=== PATIENT | male | born 1945 | race Caucasian/White ===

== ENCOUNTER 2019-04-30 01:27 | Inpatient (IN) | payer MEDICARE ==
[~2019-04-30] VITALS: Ht 177.8 cm; Wt 73.8 kg
[2019-04-30 02:09] LABS: BASOPHILS # (AUTO) 0.1 X10'3 (0-0.2); BASOPHILS % (AUTO) 1.2 % (0-1); EOSINOPHILS # (AUTO) 0.1 X10'3 (0-0.9); EOSINOPHILS % (AUTO) 1.8 % (0-6); HEMATOCRIT 38.5 % (42.0-52.0); HEMOGLOBIN 12.9 g/dl (14.0-17.9); LYMPHOCYTES # (AUTO) 0.6 X10'3 (1.1-4.8); LYMPHOCYTES % (AUTO) 11.1 % (21-51); MEAN CORPUSCULAR HEMOGLOBIN 31.2 PG (27.0-31.0); MEAN CORPUSCULAR HGB CONC 33.4 g/dL (33.0-36.5); MEAN CORPUSCULAR VOLUME 93.4 FL (78-98); MEAN PLATELET VOLUME 8.2 FL (7.4-10.4); MONOCYTES # (AUTO) 0.4 X10'3 (0-0.9); MONOCYTES % (AUTO) 8.3 % (2-12); NEUTROPHILS % (AUTO) 77.6 % (42-75); PLATELET COUNT 236 X10'3 (140-440); RED BLOOD COUNT 4.13 X10'6 (4.70-6.10); RED CELL DISTRIBUTION WIDTH 15.8 % (11.5-14.5); WHITE BLOOD COUNT 5.1 X10'3 (4.5-11.0)
[2019-04-30 02:33] LABS: ALANINE AMINOTRANSFERASE 15 U/L (12-78); ALBUMIN 3.4 G/DL (3.4-5.0); ALBUMIN/GLOBULIN RATIO 0.8 (1.1-1.5); ALKALINE PHOSPHATASE 50 IU/L (46-116); ANION GAP 15 (8-16); ASPARTATE AMINO TRANSFERASE 12 U/L (10-37); BLOOD UREA NITROGEN 24 MG/DL (7-18); BUN/CREATININE RATIO 22.2 (5.4-32.0); CALCIUM 8.7 MG/DL (8.5-10.1); CHLORIDE 106 MMOL/L (99-107); CREATININE 1.08 MG/DL (0.60-1.10); GLUCOSE 142 MG/DL (70-104); SODIUM 142 MMOL/L (135-145); TOTAL PROTEIN 7.9 G/DL (6.4-8.2); eGFR 67 ML/MIN
[2019-04-30 02:36] LABS: PARTIAL THROMBOPLASTIN TIME 68 SECONDS (22-32)
[2019-04-30] MEDS ORDERED: iohexol 350MG/ML 100ml bottle IV ONE (02:55)
[2019-04-30] MEDS ORDERED: BUPR150T8 PO (04:03)
[2019-04-30] MEDS ORDERED: SITA100T11 PO (04:03)
[2019-04-30] MEDS ORDERED: DIPH50LI26 PO (04:03)
[2019-04-30] MEDS ORDERED: NITR0.4T51 SL (04:03)
[2019-04-30] MEDS ORDERED: ISOS30TA9 PO (04:03)
[2019-04-30] MEDS ORDERED: SIMV20TA5 PO (04:03)
[2019-04-30] MEDS ORDERED: ACET-2119 PO (04:03)
[2019-04-30] MEDS ORDERED: DIGO125T78 PO (04:03)
[2019-04-30] MEDS ORDERED: LISI-643 PO (04:03)
[2019-04-30] MEDS ORDERED: COU2.5T PO (04:03)
[2019-04-30] MEDS ORDERED: METO1TAB25 PO (04:03)
[2019-04-30] MEDS ORDERED: INDLA60C (04:03)
[2019-04-30] MEDS ORDERED: METF500T PO (04:03)
[2019-04-30] MEDS ORDERED: azithromycin/NS 500mg/250ml 250 ML IV ONE (05:05)
[2019-04-30] MEDS ORDERED: ipratropium/albuterol 3ml nebule NEB ONE (05:05)
[2019-04-30] MEDS ORDERED: normal saline 1000ML IV soln IVB ONE (05:05)
[2019-04-30] MEDS ORDERED: CefTRIAXone 2gm/D5W 50ml 50 ML IV ONE (05:05)
[2019-04-30] MEDS ORDERED: methylPREDNISolone sod succ 125mg/2ml vial IV ONE (05:05)
[2019-04-30 05:26] LABS: ABG BASE EXCESS -5.4 mmol/L (-2.0-3.0); ABG HCO3 17.2 mmol/L (22.0-26.0); ABG PCO2 (T) 26.5 mmHg (35.0-45.0); ABG PH (T) 7.429 (7.350-7.450); ABG PO2 (T) 82.9 mmHg (83-108); ALLEN'S TEST Positive; FCOHb 0.1 % (0.5-1.5); FLOW 10 L/min; FMetHb 0.2 % (0.3-1.12); FO2Hb 95.7 % (94-100); TOTAL HEMOGLOBIN 14.5 G/dl (14.0-17.9)
[2019-04-30] MEDS ORDERED: potassium Cl 20 mEq SR tablet PO PRN (05:40)
[2019-04-30] MEDS ORDERED: potassium CL 10mEq/100ml bag 100 ML IV PRN ×2 (05:40)
[2019-04-30] MEDS ORDERED: mag hydrox/Alum hydrox/simeth 30ml oral suspension PO PRN (05:40)
[2019-04-30] MEDS ORDERED: MESSAGE TO PHARMACY PO ONE (05:40)
[2019-04-30] MEDS ORDERED: dextrose 50%-water 50ml dispensing syringe IV PRN ×2 (05:40)
[2019-04-30] MEDS ORDERED: insulin Lispro (HumaLOG) vial - multi-dose SQ SCH (05:40)
[2019-04-30] MEDS ORDERED: acetaminophen 325mg tablet PO PRN (05:40)
[2019-04-30] MEDS ORDERED: morphine 2 MG/ML inj. syringe IV PRN ×2 (05:40)
[2019-04-30] MEDS ORDERED: ondansetron/PF 4mg/2ml inj IV PRN (05:40)
[2019-04-30] MEDS ORDERED: dextrose ORAL solution 15 GM/59 ML bottle PO PRN ×2 (05:40)
[2019-04-30] MEDS ORDERED: glucagon, human recombinant 1mg kit SUBCUT PRN (05:40)
[2019-04-30] MEDS ORDERED: magnesium hydroxide 30ml (MOM) UD suspension PO PRN (05:40)
[2019-04-30] MEDS ORDERED: nitroGLYCERIN 0.4mg SUBLingual tab SL PRN (05:45)
[2019-04-30] MEDS ORDERED: ondansetron/PF 4mg/2ml inj IV ONE (05:50)
[2019-04-30] MEDS: normal saline 1000ml 1,000 ML IV SCH ×2 (05:52→18:34)
--- NOTE | 2019-04-30 05:57 | NUR ---
DISCUSSED PT'S INABILITY TO URINATE WITH DR GRIMM. NEW ORDER FOR FC PLACEMENT RECEIVED.
--- NOTE | 2019-04-30 06:27 | NUR ---
PATIENT RECEIVED ON A NON REBREATHER.
--- NOTE | 2019-04-30 06:27 | NUR ---
PATIENT RECEIVED ON BED AWAKE,SPOUSE AT BEDSIDE,NAME BAND CHANGED.AWAITING FOR ROOM ASSIGNMENT.
--- NOTE | 2019-04-30 06:56 | NUR ---
PATIENT CHANGED INTO A HOSPITAL GOWN,SACRAL AREA INTACT WIH BLANCHABLE REDNESS.REPOSITIONED PATIENT,GIVEN WARM BLANKET,SPOUSE AT BEDSIDE.APPRECIATIVE OF CARE.
--- NOTE | 2019-04-30 07:02 | NUR ---
PATIENT PLACED ON NC 2l SATING 96%,WILL OBSERVE IF PATIENT IS ABLE TO TOLERATE WIHOUT GETTING SOB.
[2019-04-30] MEDS: metoprolol tartrate 25mg tablet PO SCH (07:04)
[2019-04-30] MEDS: lisinopril 2.5mg tablet PO SCH (07:05)
[2019-04-30] MEDS: HYDROchlorothiazide 12.5mg capsule PO SCH (07:05)
--- NOTE | 2019-04-30 07:06 | NUR ---
BP MEDS HELD THIS MORNING,PATIENT BOARDERLINE HYPOTENSIVE.
--- NOTE | 2019-04-30 07:14 | NUR ---
CALLED PHARMACY,SPOKE TO NATE ROSALES AND LANOXIN NOT AVAILABLE AT THIS TIME,BREAKFAST ORDERED FROM DIETARY.
[2019-04-30] MEDS: linagliptin 5mg tablet PO SCH (08:00)
[2019-04-30] MEDS: K and/or MAG REPLACEMENT MC SCH (08:00)
[2019-04-30] MEDS: buPROPion SR 150mg tablet PO SCH ×2 (08:19→20:53)
[2019-04-30] MEDS: azithromycin/NS 500mg/250ml 250 ML IV SCH (08:20)
--- NOTE | 2019-04-30 08:34 | NUR ---
joey held per spouse-patient low po intake.
[2019-04-30] MEDS: digoxin 125mcg (0.125mg) tablet PO SCH (08:54)
[2019-04-30 09:01] LABS: HEMOGLOBIN A1C 5.8 % (4.5-6.2)
[2019-04-30] MEDS ORDERED: ISOS30TA6 PO (10:13)
--- NOTE | 2019-04-30 11:03 | NUR ---
LEFT A MEESAGE TO SPOUSE PATRICE MADE AWARE THAT PATIENT IS BEING TRANSFERRED TO [facility].
[2019-04-30 11:15] VITALS: BP 105/59
--- NOTE | 2019-04-30 11:36 | NUR ---
pt arrived from ER to [id number]. Report obtained from BRENT Gann. Pt connected to heart monitor and VS obtained and stable. Pt oriented to room. Denies pain at this time. No others needs at this time.
--- NOTE | 2019-04-30 18:20 | NUR ---
pts daughter, [place] [facility] [phone]
--- NOTE | 2019-04-30 18:25 | NUR ---
Patient in room PCU 3028. I have received report from Sakina KENNEDY and had the opportunity to ask questions and assume patient care.
[2019-04-30 19:00] VITALS: BP 104/61
[2019-04-30] MEDS: lactobacillus rhamnosus 10,000 MMU CELLS/CAPSULE PO SCH (20:53)
[2019-04-30] MEDS: atorvastatin 20mg tablet PO SCH (20:53)
[2019-04-30 20:55] VITALS: BP 110/63
[2019-04-30] MEDS: isosorbide mononitrate 30mg tab.SR.24H PO SCH (20:56)
[2019-04-30] MEDS ORDERED: isosorbide dinitrate 30mg tablet PO SCH (21:00)
[2019-04-30] MEDS: insulin glargine (Lantus) pen - multi-dose SQ SCH (21:00)
[2019-04-30 23:00] VITALS: BP 99/54
[2019-05-01] MEDS: normal saline 1000ml 1,000 ML IV SCH ×2 (01:40→04:54)
[2019-05-01 03:00] VITALS: BP 103/50
[2019-05-01] MEDS: CefTRIAXone/D5W-Rocephin 1gm 50 ML IV SCH (05:04)
[2019-05-01 06:03] LABS: BASOPHILS % (AUTO) 0.2 % (0-1); EOSINOPHILS % (AUTO) 0 % (0-6); HEMATOCRIT 28.6 % (42.0-52.0); HEMOGLOBIN 9.9 g/dl (14.0-17.9); LYMPHOCYTES # (AUTO) 0.8 X10'3 (1.1-4.8); LYMPHOCYTES % (AUTO) 7.3 % (21-51); MEAN CORPUSCULAR HEMOGLOBIN 33.1 PG (27.0-31.0); MEAN CORPUSCULAR HGB CONC 34.5 g/dL (33.0-36.5); MEAN PLATELET VOLUME 8.3 FL (7.4-10.4); MONOCYTES # (AUTO) 1.3 X10'3 (0-0.9); MONOCYTES % (AUTO) 11.8 % (2-12); NEUTROPHILS # (AUTO) 9.1 X10'3 (1.8-7.7); NEUTROPHILS % (AUTO) 80.7 % (42-75); PLATELET COUNT 172 X10'3 (140-440); RED BLOOD COUNT 2.98 X10'6 (4.70-6.10); RED CELL DISTRIBUTION WIDTH 15.6 % (11.5-14.5); WHITE BLOOD COUNT 11.3 X10'3 (4.5-11.0)
[2019-05-01 06:05] LABS: ALBUMIN 2.5 G/DL (3.4-5.0); ANION GAP 12 (8-16); BLOOD UREA NITROGEN 24 MG/DL (7-18); BUN/CREATININE RATIO 24.2 (5.4-32.0); CALCIUM 7.7 MG/DL (8.5-10.1); CHLORIDE 108 MMOL/L (99-107); CREATININE 0.99 MG/DL (0.60-1.10); GLUCOSE 129 MG/DL (70-104); POTASSIUM 3.8 MMOL/L (3.5-5.1); SODIUM 141 MMOL/L (135-145); TOTAL CARBON DIOXIDE 20.9 MMOL/L (24-32); eGFR 74 ML/MIN
--- NOTE | 2019-05-01 06:10 | NUR ---
Problems reprioritized. Patient report given, questions answered & plan of care reviewed with Jossy KENNEDY.
[2019-05-01 06:30] VITALS: BP 104/60
--- NOTE | 2019-05-01 06:42 | NUR ---
Patient in room PCU 3028A. I have received report from Janene KENNEDY and had the opportunity to ask questions and assume patient care.
[2019-05-01] MEDS: metoprolol tartrate 25mg tablet PO SCH (08:00)
[2019-05-01] MEDS: lisinopril 2.5mg tablet PO SCH (08:00)
[2019-05-01] MEDS: K and/or MAG REPLACEMENT MC SCH (08:00)
[2019-05-01] MEDS: HYDROchlorothiazide 12.5mg capsule PO SCH (08:00)
[2019-05-01] MEDS: digoxin 125mcg (0.125mg) tablet PO SCH (08:45)
[2019-05-01] MEDS: lactobacillus rhamnosus 10,000 MMU CELLS/CAPSULE PO SCH ×2 (08:45→20:22)
[2019-05-01] MEDS: buPROPion SR 150mg tablet PO SCH ×2 (08:45→20:22)
[2019-05-01] MEDS: linagliptin 5mg tablet PO SCH (08:45)
[2019-05-01] MEDS: azithromycin/NS 500mg/250ml 250 ML IV SCH (08:47)
[2019-05-01 09:14] LABS: PLATELET ESTIMATE NORMAL; TOTAL CELLS COUNTED 100
[2019-05-01 11:00] VITALS: BP 113/68
[2019-05-01 15:00] VITALS: BP 125/79
--- NOTE | 2019-05-01 15:34 | NUR ---
Malnutrition/cardiac diet consults: Pt admit w/ SOB DX community-acquired PNA hx CA requiring removal of top row of teeth but pt does not want to wear dentures per POA. RD d/w POA regarding protein/kcal needs. POA reports March 03 doctors visit pt was 171.5 pounds; currently 147 pounds. 15% UBW loss in 8 weeks severe wt loss r/t low PO 10-25% first meal during RD visit. POA reports trouble swallowing and chokes often on food as well as needs feeder r/t shaking and adaptive wear has been unsuccessful at home. Pt/POA agree to ensure pudding and Glucernas TIDWM given low PO hx. RD ordered [employer] BSS given pt hx and DX would benefit. Given above criteria pt qualifies for severe malnutrition at this time; MD notified. Pt family aware that MD verification required prior to sending Glucernas w/ meals. RD provided written/verbal malnutrition ed, RD contact information, and Glucerna coupons to pt/POA. Will continue to monitor. Rec: 1. continue carb controlled diet w/ feeder 2. ensure pudding TIDWM 3. Glucerna TIDWM; pending MD verification prior to sending on meals 4. honor pt food preferences 5. weekly wts Addendum: 05/01/19 at [address] Amended: Links added.
[2019-05-01 18:00] VITALS: BP 123/76
[2019-05-01] MEDS ORDERED: NUT.TX.GLUC.INTOLER,LAC-FR,SOY (GLUCERNA) 237 ML PO SCH (18:00)
--- NOTE | 2019-05-01 18:23 | NUR ---
Problems reprioritized. Patient report given, questions answered & plan of care reviewed with Elizabeth KENNEDY.
--- NOTE | 2019-05-01 18:25 | NUR ---
Patient in room PCU 3028. I have received report from BRENT Fenton and had the opportunity to ask questions and assume patient care. Patient is resting comfortably on hospital bed, dinner tray is present he however says he is not that hungry. He is A&Ox3, PABON and is appropriate, slow to answer. I will continue to monitor.
[2019-05-01] MEDS: atorvastatin 20mg tablet PO SCH (20:22)
[2019-05-01] MEDS: isosorbide mononitrate 30mg tab.SR.24H PO SCH (20:22)
[2019-05-01] MEDS: insulin glargine (Lantus) pen - multi-dose SQ SCH (21:00)
[2019-05-01 23:00] VITALS: BP_SYST 103; BP_SYST 122; BP_DIAS 51; BP_DIAS 80
[2019-05-02 02:00] VITALS: BP 106/60
[2019-05-02] MEDS: CefTRIAXone/D5W-Rocephin 1gm 50 ML IV SCH (05:16)
[2019-05-02 06:00] VITALS: BP 101/55
--- NOTE | 2019-05-02 06:14 | NUR ---
Problems reprioritized. Patient report given, questions answered & plan of care reviewed with BRENT Fenton.
--- NOTE | 2019-05-02 06:20 | NUR ---
Patient in room PCU 3026K. I have received report from Elizabeth KENNEDY and had the opportunity to ask questions and assume patient care.
[2019-05-02 06:35] LABS: BASOPHILS % (AUTO) 0.2 % (0-1); EOSINOPHILS # (AUTO) 0.1 X10'3 (0-0.9); EOSINOPHILS % (AUTO) 0.7 % (0-6); HEMATOCRIT 29.1 % (42.0-52.0); LYMPHOCYTES # (AUTO) 0.9 X10'3 (1.1-4.8); LYMPHOCYTES % (AUTO) 7.2 % (21-51); MEAN CORPUSCULAR HEMOGLOBIN 32.1 PG (27.0-31.0); MEAN CORPUSCULAR HGB CONC 34.5 g/dL (33.0-36.5); MEAN CORPUSCULAR VOLUME 93.1 FL (78-98); MEAN PLATELET VOLUME 8.3 FL (7.4-10.4); MONOCYTES # (AUTO) 0.9 X10'3 (0-0.9); MONOCYTES % (AUTO) 7.2 % (2-12); NEUTROPHILS # (AUTO) 10.7 X10'3 (1.8-7.7); NEUTROPHILS % (AUTO) 84.7 % (42-75); PLATELET COUNT 182 X10'3 (140-440); RED BLOOD COUNT 3.13 X10'6 (4.70-6.10); RED CELL DISTRIBUTION WIDTH 15.8 % (11.5-14.5); WHITE BLOOD COUNT 12.6 X10'3 (4.5-11.0)
[2019-05-02 06:43] LABS: ALBUMIN 2.6 G/DL (3.4-5.0); ANION GAP 14 (8-16); BLOOD UREA NITROGEN 18 MG/DL (7-18); BUN/CREATININE RATIO 21.7 (5.4-32.0); CALCIUM 7.8 MG/DL (8.5-10.1); CHLORIDE 107 MMOL/L (99-107); CREATININE 0.83 MG/DL (0.60-1.10); GLUCOSE 105 MG/DL (70-104); POTASSIUM 3.3 MMOL/L (3.5-5.1); SODIUM 143 MMOL/L (135-145); TOTAL CARBON DIOXIDE 22.2 MMOL/L (24-32); eGFR > 90 ML/MIN
[2019-05-02] MEDS: K and/or MAG REPLACEMENT MC SCH (08:00)
[2019-05-02] MEDS: azithromycin/NS 500mg/250ml 250 ML IV SCH (09:00)
[2019-05-02] MEDS: potassium Cl 20 mEq SR tablet PO PRN ×3 (09:00→17:11)
[2019-05-02] MEDS: linagliptin 5mg tablet PO SCH (09:00)
[2019-05-02] MEDS: lactobacillus rhamnosus 10,000 MMU CELLS/CAPSULE PO SCH ×2 (09:01→21:18)
[2019-05-02] MEDS: buPROPion SR 150mg tablet PO SCH ×2 (09:01→21:18)
[2019-05-02] MEDS: HYDROchlorothiazide 12.5mg capsule PO SCH (09:02)
[2019-05-02] MEDS: digoxin 125mcg (0.125mg) tablet PO SCH (09:02)
[2019-05-02] MEDS: lisinopril 2.5mg tablet PO SCH (09:02)
[2019-05-02] MEDS: metoprolol tartrate 25mg tablet PO SCH (09:02)
[2019-05-02 11:00] VITALS: BP 97/55
[2019-05-02 15:00] VITALS: BP 132/75
--- NOTE | 2019-05-02 16:40 | NUR ---
Patient in room PCU 3028. I have received report from BRENT Fenton and had the opportunity to ask questions and assume patient care.
[2019-05-02] MEDS: NUT.TX.GLUC.INTOLER,LAC-FR,SOY (GLUCERNA) 237 ML PO SCH (18:00)
--- NOTE | 2019-05-02 18:48 | NUR ---
Problems reprioritized. Patient report given, questions answered & plan of care reviewed with Jess KENNEDY.
[2019-05-02 19:00] VITALS: BP 135/89
[2019-05-02] MEDS: insulin glargine (Lantus) pen - multi-dose SQ SCH (21:00)
[2019-05-02] MEDS ORDERED: warfarin 2.5mg tablet PO ONE (21:00)
[2019-05-02] MEDS: atorvastatin 20mg tablet PO SCH (21:17)
[2019-05-02] MEDS: isosorbide mononitrate 30mg tab.SR.24H PO SCH (21:18)
[2019-05-02] MEDS: warfarin 2.5mg tablet PO SCH (21:19)
[2019-05-02 23:00] VITALS: BP 120/65
[2019-05-03 03:00] VITALS: BP 114/61
[2019-05-03] MEDS: CefTRIAXone/D5W-Rocephin 1gm 50 ML IV SCH (05:28)
[2019-05-03 05:49] LABS: BASOPHILS % (AUTO) 0.1 % (0-1); EOSINOPHILS # (AUTO) 0.2 X10'3 (0-0.9); EOSINOPHILS % (AUTO) 1.5 % (0-6); HEMATOCRIT 28.4 % (42.0-52.0); HEMOGLOBIN 10.1 g/dl (14.0-17.9); LYMPHOCYTES # (AUTO) 0.9 X10'3 (1.1-4.8); LYMPHOCYTES % (AUTO) 7.6 % (21-51); MEAN CORPUSCULAR HEMOGLOBIN 32.9 PG (27.0-31.0); MEAN CORPUSCULAR HGB CONC 35.4 g/dL (33.0-36.5); MEAN CORPUSCULAR VOLUME 93.1 FL (78-98); MEAN PLATELET VOLUME 8.4 FL (7.4-10.4); MONOCYTES # (AUTO) 0.9 X10'3 (0-0.9); MONOCYTES % (AUTO) 7.6 % (2-12); NEUTROPHILS # (AUTO) 9.8 X10'3 (1.8-7.7); NEUTROPHILS % (AUTO) 83.2 % (42-75); PLATELET COUNT 199 X10'3 (140-440); RED BLOOD COUNT 3.06 X10'6 (4.70-6.10); RED CELL DISTRIBUTION WIDTH 15.2 % (11.5-14.5); WHITE BLOOD COUNT 11.8 X10'3 (4.5-11.0)
[2019-05-03 05:54] LABS: ALBUMIN 2.6 G/DL (3.4-5.0); ANION GAP 12 (8-16); BLOOD UREA NITROGEN 11 MG/DL (7-18); BUN/CREATININE RATIO 13.8 (5.4-32.0); CALCIUM 8.1 MG/DL (8.5-10.1); CHLORIDE 104 MMOL/L (99-107); GLUCOSE 100 MG/DL (70-104); POTASSIUM 3.8 MMOL/L (3.5-5.1); SODIUM 139 MMOL/L (135-145); TOTAL CARBON DIOXIDE 22.9 MMOL/L (24-32); eGFR > 90 ML/MIN
[2019-05-03 06:00] VITALS: BP 108/67
--- NOTE | 2019-05-03 06:18 | NUR ---
Problems reprioritized. Patient report given, questions answered & plan of care reviewed with Rose MarieRN, Charles KENNEDY.
--- NOTE | 2019-05-03 06:31 | NUR ---
Patient in room PCU 3028. I have received report from Jess KENNEDY and had the opportunity to ask questions and assume patient care.
--- NOTE | 2019-05-03 06:31 | NUR ---
Patient in room PCU 3028. I have received report from BRENT Mercado and had the opportunity to ask questions and assume patient care. Pt awoke in a pleasant mood. Stated he will go back to sleep while he can. Will continue to monitor.
[2019-05-03] MEDS: azithromycin/NS 500mg/250ml 250 ML IV SCH (07:28)
[2019-05-03] MEDS: K and/or MAG REPLACEMENT MC SCH (07:38)
[2019-05-03] MEDS: linagliptin 5mg tablet PO SCH (07:49)
[2019-05-03] MEDS: lactobacillus rhamnosus 10,000 MMU CELLS/CAPSULE PO SCH ×2 (07:49→20:09)
[2019-05-03] MEDS: buPROPion SR 150mg tablet PO SCH ×2 (07:49→20:09)
[2019-05-03] MEDS: HYDROchlorothiazide 12.5mg capsule PO SCH (07:50)
[2019-05-03] MEDS: metoprolol tartrate 25mg tablet PO SCH (07:50)
[2019-05-03] MEDS: lisinopril 2.5mg tablet PO SCH (07:50)
[2019-05-03] MEDS: digoxin 125mcg (0.125mg) tablet PO SCH (07:51)
[2019-05-03] MEDS: NUT.TX.GLUC.INTOLER,LAC-FR,SOY (GLUCERNA) 237 ML PO SCH ×3 (08:00→18:20)
[2019-05-03 11:00] VITALS: BP 114/62
[2019-05-03 15:00] VITALS: BP 136/73
[2019-05-03 18:00] VITALS: BP 126/60
--- NOTE | 2019-05-03 18:35 | NUR ---
Patient in room PCU 3028. I have received report from BRENT Soto and had the opportunity to ask questions and assume patient care.
--- NOTE | 2019-05-03 18:43 | NUR ---
Problems reprioritized. Patient report given, questions answered & plan of care reviewed with BRENT Lafleur.
[2019-05-03] MEDS: isosorbide mononitrate 30mg tab.SR.24H PO SCH (20:09)
[2019-05-03] MEDS: warfarin 2.5mg tablet PO SCH (20:10)
[2019-05-03] MEDS: atorvastatin 20mg tablet PO SCH (20:10)
[2019-05-03] MEDS: insulin glargine (Lantus) pen - multi-dose SQ SCH (21:00)
[2019-05-03 22:00] VITALS: BP 118/73
[2019-05-04 02:00] VITALS: BP 117/68
[2019-05-04 04:43] LABS: BASOPHILS % (AUTO) 0.2 % (0-1); EOSINOPHILS # (AUTO) 0.2 X10'3 (0-0.9); EOSINOPHILS % (AUTO) 1.2 % (0-6); HEMATOCRIT 30.3 % (42.0-52.0); HEMOGLOBIN 10.5 g/dl (14.0-17.9); LYMPHOCYTES % (AUTO) 7.3 % (21-51); MEAN CORPUSCULAR HEMOGLOBIN 32.2 PG (27.0-31.0); MEAN CORPUSCULAR HGB CONC 34.6 g/dL (33.0-36.5); MEAN CORPUSCULAR VOLUME 93.2 FL (78-98); MEAN PLATELET VOLUME 7.8 FL (7.4-10.4); MONOCYTES # (AUTO) 1.5 X10'3 (0-0.9); MONOCYTES % (AUTO) 11.4 % (2-12); NEUTROPHILS # (AUTO) 10.5 X10'3 (1.8-7.7); NEUTROPHILS % (AUTO) 79.9 % (42-75); PLATELET COUNT 206 X10'3 (140-440); RED BLOOD COUNT 3.25 X10'6 (4.70-6.10); RED CELL DISTRIBUTION WIDTH 15.2 % (11.5-14.5); WHITE BLOOD COUNT 13.1 X10'3 (4.5-11.0)
[2019-05-04 04:57] LABS: ALBUMIN 2.6 G/DL (3.4-5.0); ANION GAP 13 (8-16); BLOOD UREA NITROGEN 10 MG/DL (7-18); BUN/CREATININE RATIO 13.2 (5.4-32.0); CALCIUM 8.1 MG/DL (8.5-10.1); CHLORIDE 100 MMOL/L (99-107); CREATININE 0.76 MG/DL (0.60-1.10); GLUCOSE 122 MG/DL (70-104); POTASSIUM 3.1 MMOL/L (3.5-5.1); SODIUM 137 MMOL/L (135-145); TOTAL CARBON DIOXIDE 24.3 MMOL/L (24-32); eGFR > 90 ML/MIN
[2019-05-04] MEDS: CefTRIAXone/D5W-Rocephin 1gm 50 ML IV SCH (04:59)
[2019-05-04 06:00] VITALS: BP 113/66
--- NOTE | 2019-05-04 06:35 | NUR ---
Problems reprioritized. Patient report given, questions answered & plan of care reviewed with BRENT Floyd.
[2019-05-04] MEDS: K and/or MAG REPLACEMENT MC SCH (08:00)
[2019-05-04] MEDS: azithromycin/NS 500mg/250ml 250 ML IV SCH (08:38)
[2019-05-04] MEDS: lactobacillus rhamnosus 10,000 MMU CELLS/CAPSULE PO SCH ×2 (08:38→20:59)
[2019-05-04] MEDS: HYDROchlorothiazide 12.5mg capsule PO SCH (08:38)
[2019-05-04] MEDS: linagliptin 5mg tablet PO SCH (08:39)
[2019-05-04] MEDS: metoprolol tartrate 25mg tablet PO SCH (08:39)
[2019-05-04] MEDS: lisinopril 2.5mg tablet PO SCH (08:40)
[2019-05-04] MEDS: digoxin 125mcg (0.125mg) tablet PO SCH (08:40)
[2019-05-04] MEDS: buPROPion SR 150mg tablet PO SCH ×2 (08:40→20:59)
[2019-05-04] MEDS: NUT.TX.GLUC.INTOLER,LAC-FR,SOY (GLUCERNA) 237 ML PO SCH ×3 (09:00→17:54)
[2019-05-04] MEDS ORDERED: POTASSIUM BICARB 20meq eff tab 20 MEQ TABLET.EFF PO SCH (10:30)
[2019-05-04 11:00] VITALS: BP 111/58
[2019-05-04] MEDS ORDERED: POTASSIUM BICARB 20meq eff tab 20 MEQ TABLET.EFF PO PRN (12:30)
--- NOTE | 2019-05-04 13:20 | NUR ---
Reassessment: Pt continues with fluctuations in PO intake 0-50% however with 100% PO intake of ONS and receiving Ensure pudding TID. Pt s/p BSS 05/[address] cardenas continuing regular food with thin liquids d/t some slowness with chewing but no aspiration noted. Per notes pt denies N/V. LBM 05/02. Will continue to follow. Rec: 1. continue carb controlled diet w/ feeder 2. ensure pudding TIDWM 3. Glucerna TIDWM 4. honor pt food preferences 5. weekly wts Addendum: 05/04/19 at [address] Amended: Links added.
[2019-05-04 15:00] VITALS: BP 107/54
[2019-05-04] MEDS: POTASSIUM BICARB 20meq eff tab 20 MEQ TABLET.EFF PO PRN ×2 (15:33→23:08)
[2019-05-04 19:00] VITALS: BP 107/68
[2019-05-04] MEDS: isosorbide mononitrate 30mg tab.SR.24H PO SCH (20:59)
[2019-05-04] MEDS: atorvastatin 20mg tablet PO SCH (20:59)
[2019-05-04] MEDS: warfarin 2.5mg tablet PO SCH (20:59)
[2019-05-04] MEDS: insulin glargine (Lantus) pen - multi-dose SQ SCH (21:00)
[2019-05-04 23:00] VITALS: BP 106/58
[2019-05-05 03:00] VITALS: BP 90/55
[2019-05-05 05:44] LABS: BASOPHILS % (AUTO) 0.3 % (0-1); EOSINOPHILS # (AUTO) 0.2 X10'3 (0-0.9); EOSINOPHILS % (AUTO) 1.9 % (0-6); HEMATOCRIT 31.6 % (42.0-52.0); HEMOGLOBIN 10.7 g/dl (14.0-17.9); LYMPHOCYTES # (AUTO) 0.9 X10'3 (1.1-4.8); LYMPHOCYTES % (AUTO) 8.2 % (21-51); MEAN CORPUSCULAR HEMOGLOBIN 31.8 PG (27.0-31.0); MEAN CORPUSCULAR HGB CONC 33.9 g/dL (33.0-36.5); MEAN CORPUSCULAR VOLUME 93.8 FL (78-98); MONOCYTES # (AUTO) 1.7 X10'3 (0-0.9); MONOCYTES % (AUTO) 14.8 % (2-12); NEUTROPHILS # (AUTO) 8.6 X10'3 (1.8-7.7); NEUTROPHILS % (AUTO) 74.8 % (42-75); PLATELET COUNT 219 X10'3 (140-440); RED BLOOD COUNT 3.37 X10'6 (4.70-6.10); RED CELL DISTRIBUTION WIDTH 15.1 % (11.5-14.5); WHITE BLOOD COUNT 11.5 X10'3 (4.5-11.0)
[2019-05-05] MEDS: CefTRIAXone/D5W-Rocephin 1gm 50 ML IV SCH (05:51)
[2019-05-05 05:59] LABS: ALBUMIN 2.5 G/DL (3.4-5.0); ANION GAP 10 (8-16); BLOOD UREA NITROGEN 10 MG/DL (7-18); BUN/CREATININE RATIO 11.8 (5.4-32.0); CALCIUM 8.2 MG/DL (8.5-10.1); CHLORIDE 98 MMOL/L (99-107); CREATININE 0.85 MG/DL (0.60-1.10); GLUCOSE 102 MG/DL (70-104); POTASSIUM 3.2 MMOL/L (3.5-5.1); SODIUM 136 MMOL/L (135-145); TOTAL CARBON DIOXIDE 28.1 MMOL/L (24-32); eGFR 88 ML/MIN
--- NOTE | 2019-05-05 06:21 | NUR ---
Patient in room PCU 3028. I have received report from BRENT Steel and had the opportunity to ask questions and assume patient care. Patient is currently sleeping in bed, bed locked and low, call light in reach. IV abx running, no acute distress, will continue to monitor
[2019-05-05 06:54] VITALS: BP 97/51
[2019-05-05] MEDS: K and/or MAG REPLACEMENT MC SCH (08:00)
[2019-05-05] MEDS: HYDROchlorothiazide 12.5mg capsule PO SCH (08:00)
[2019-05-05] MEDS: NUT.TX.GLUC.INTOLER,LAC-FR,SOY (GLUCERNA) 237 ML PO SCH ×2 (08:00→13:57)
[2019-05-05] MEDS ORDERED: azithromycin 250mg tablet PO SCH (08:00)
[2019-05-05] MEDS: lisinopril 2.5mg tablet PO SCH (08:00)
[2019-05-05] MEDS: lactobacillus rhamnosus 10,000 MMU CELLS/CAPSULE PO SCH (08:57)
[2019-05-05] MEDS: linagliptin 5mg tablet PO SCH (09:02)
[2019-05-05] MEDS: digoxin 125mcg (0.125mg) tablet PO SCH (09:02)
[2019-05-05 09:03] VITALS: BP_SYST 98
[2019-05-05] MEDS: buPROPion SR 150mg tablet PO SCH (09:03)
[2019-05-05] MEDS: metoprolol tartrate 25mg tablet PO SCH (09:03)
[2019-05-05] MEDS: POTASSIUM BICARB 20meq eff tab 20 MEQ TABLET.EFF PO PRN (09:05)
--- NOTE | 2019-05-05 13:47 | NUR ---
Received order for patient transfer to [facility], report called, belongings gathered, telemetry removed, IV removed, johnson in place, on 1L NC, to be transferred by [facility]. Patient stable at time of discharge.
== END 2019-05-05 13:55 | DRG 871 ==
LOC: ER 01:28 → PCU 3S 11:15 → CMPBEDREQ 05-02 19:44
PROVIDERS: ADMIT Hospitalist; ATTEND Hospitalist
PROC: B32T1ZZ Computerized Tomography (CT Scan) of Left Pulmonary Artery using Low Osmolar Contrast (ICD-10-PCS; principal; 2019-04-30)
PROC: B3201ZZ Computerized Tomography (CT Scan) of Thoracic Aorta using Low Osmolar Contrast (ICD-10-PCS; 2019-04-30)
PROC: B32S1ZZ Computerized Tomography (CT Scan) of Right Pulmonary Artery using Low Osmolar Contrast (ICD-10-PCS; 2019-04-30)
DX: A41.9 Sepsis, unspecified organism (principal); E43 Unspecified severe protein-calorie malnutrition; G93.41 Metabolic encephalopathy; J18.1 Lobar pneumonia, unspecified organism; J96.01 Acute respiratory failure with hypoxia; E78.00 Pure hypercholesterolemia, unspecified; R33.9 Retention of urine, unspecified; F17.200 Nicotine dependence, unspecified, uncomplicated; D64.9 Anemia, unspecified; C44.92 Squamous cell carcinoma of skin, unspecified; Z66 Do not resuscitate; E11.9 Type 2 diabetes mellitus without complications; F03.90 Unspecified dementia, unspecified severity, without behavioral disturbance, psychotic disturbance, mood disturbance, and anxiety; I10 Essential (primary) hypertension; I48.91 Unspecified atrial fibrillation; R79.1 Abnormal coagulation profile; Z85.46 Personal history of malignant neoplasm of prostate; Z86.12 Personal history of poliomyelitis; Z88.8 Allergy status to other drugs, medicaments and biological substances; Z68.23 Body mass index [BMI] 23.0-23.9, adult
CPT/HCPCS: 36415; 36600; 70450; 71045; 71275; 80048; 80053; 80162; 82803; 82948; 83036; 83605; 84484; 85018; 85025; 85610; 85730; 87040; 87081; 92508; 92616; 93005; 93308; 94640; 94760; 96365; 96367; 96375; 97110; 97116; 97162; 97530; 99285; G0378; J0456; J0696; J1815; J2405; J2930; J7030; Q9967

== ENCOUNTER 2019-07-21 14:27 | Emergency (ER) | payer MEDICARE ==
[~2019-07-21] VITALS: Ht 177.8 cm; Wt 59.1 kg
[~2019-07-21 14:27] MED LIST: ACET-2119 PO; BUPR150T8 PO; COU2.5T PO; DIGO125T78 PO; DIPH50LI26 PO; INDLA60C; ISOS30TA6 PO; LISI-643 PO; METF500T PO; METO1TAB25 PO; NITR0.4T51 SL; SIMV20TA5 PO; SITA100T11 PO
[2019-07-21] MEDS ORDERED: normal saline 1000ML IV soln IV ONE (14:45)
[2019-07-21 15:24] LABS: BASOPHILS # (AUTO) 0.1 X10'3 (0-0.2); BASOPHILS % (AUTO) 1.2 % (0-1); EOSINOPHILS # (AUTO) 0.3 X10'3 (0-0.9); EOSINOPHILS % (AUTO) 3.9 % (0-6); HEMOGLOBIN 13.4 g/dl (14.0-17.9); LYMPHOCYTES # (AUTO) 1.3 X10'3 (1.1-4.8); LYMPHOCYTES % (AUTO) 17.3 % (21-51); MEAN CORPUSCULAR HEMOGLOBIN 31.4 PG (27.0-31.0); MEAN CORPUSCULAR HGB CONC 33.4 g/dL (33.0-36.5); MEAN CORPUSCULAR VOLUME 94.2 FL (78-98); MEAN PLATELET VOLUME 7.5 FL (7.4-10.4); MONOCYTES # (AUTO) 0.7 X10'3 (0-0.9); MONOCYTES % (AUTO) 9.2 % (2-12); NEUTROPHILS # (AUTO) 5.2 X10'3 (1.8-7.7); NEUTROPHILS % (AUTO) 68.4 % (42-75); PLATELET COUNT 295 X10'3 (140-440); RED BLOOD COUNT 4.25 X10'6 (4.70-6.10); RED CELL DISTRIBUTION WIDTH 14.2 % (11.5-14.5); WHITE BLOOD COUNT 7.6 X10'3 (4.5-11.0)
[2019-07-21] MEDS ORDERED: CefTRIAXone 2gm/D5W 50ml 50 ML IV ONE (15:30)
[2019-07-21] MEDS ORDERED: normal saline 1000ML IV soln IVB ONE ×2 (15:30→17:25)
[2019-07-21 16:07] LABS: PARTIAL THROMBOPLASTIN TIME 57 SECONDS (22-32)
[2019-07-21 16:16] LABS: ALANINE AMINOTRANSFERASE 10 U/L (12-78); ALBUMIN 3.3 G/DL (3.4-5.0); ALBUMIN/GLOBULIN RATIO 0.7 (1.1-1.5); ALKALINE PHOSPHATASE 63 IU/L (46-116); ANION GAP 10 (8-16); ASPARTATE AMINO TRANSFERASE 22 U/L (10-37); BILIRUBIN,TOTAL 0.8 MG/DL (0.1-1.0); BLOOD UREA NITROGEN 14 MG/DL (7-18); BUN/CREATININE RATIO 14.1 (5.4-32.0); CALCIUM 9.5 MG/DL (8.5-10.1); CHLORIDE 102 MMOL/L (99-107); CREATININE 0.99 MG/DL (0.60-1.10); GLUCOSE 126 MG/DL (70-104); MAGNESIUM 2.3 MG/DL (1.5-2.4); POTASSIUM 4.4 MMOL/L (3.5-5.1); SODIUM 140 MMOL/L (135-145); TOTAL CARBON DIOXIDE 27.7 MMOL/L (24-32); TOTAL PROTEIN 8.3 G/DL (6.4-8.2); eGFR 74 ML/MIN
--- NOTE | 2019-07-21 17:30 | NUR ---
pt refusing straight cath at this time. notified. new orders received for 1 liter bolus.
[2019-07-21 18:32] LABS: CLARITY,URINE CLEAR (Clear); COLOR,URINE AMBER (Yellow); GLUCOSE, URINE NEGATIVE (Neg); KETONES,URINE TRACE mg/dl (Neg); LEUKOCYTE ESTERASE ,URINE NEGATIVE (Neg); NITRITES, URINE NEGATIVE (Neg); OCCULT BLOOD,URINE NEGATIVE (Neg); PH,URINE 6.5 (4.8-8.0); PROTEIN,URINE TRACE mg/dl (Neg)
[2019-07-21 18:33] LABS: UA COLLECTION TYPE STRAIGHT CATH
[2019-07-21 18:47] LABS: BACTERIA,URINE NONE SEEN /HPF (Neg); HYALINE CASTS 0-3 /LPF (NEGATIVE); MUCUS STRANDS FEW /LPF (Neg); RBC,URINE 0-2 /HPF (0-2); SQUAMOUS EPITHELIAL CELL,UR FEW /LPF (FEW); WBC,URINE 0-4 /HPF (0-4)
[2019-07-21 20:23] VITALS: BP 150/93
== END 2019-07-21 20:20 | disposition home or self-care (01) ==
LOC: ER 14:28
DX: R41.0 Disorientation, unspecified (principal); L89.819 Pressure ulcer of head, unspecified stage; I48.91 Unspecified atrial fibrillation; E78.00 Pure hypercholesterolemia, unspecified; I10 Essential (primary) hypertension; E11.9 Type 2 diabetes mellitus without complications; Z98.890 Other specified postprocedural states; Z88.5 Allergy status to narcotic agent; Z79.84 Long term (current) use of oral hypoglycemic drugs; Z79.01 Long term (current) use of anticoagulants; Z79.899 Other long term (current) drug therapy
CPT/HCPCS: 36415; 71045; 80053; 81001; 83605; 83735; 84145; 85025; 85610; 85730; 87040; 87502; 87503; 93005; 96361; 96365; 99284; J0696; J7030; P9612